=== PATIENT | female | born 1970 | race Caucasian/White ===

== ENCOUNTER 2020-10-19 19:27 | Inpatient (IN) | payer OTHER ==
[~2020-10-19] VITALS: Ht 154.9 cm; Wt 110.9 kg
[2020-10-19] MEDS ORDERED: KETOROLAC TROMETH 30 MG/ML 1ML VIAL IV ONE (19:45)
[2020-10-19] MEDS ORDERED: SODIUM CHLORIDE 0.9% 1,000 ML IVB ONE (19:45)
[2020-10-19] MEDS ORDERED: VANCOMYCIN 1GM/250ML 250 ML IV ONE (19:45)
[2020-10-19] MEDS ORDERED: ONDANSETRON HCL 4 MG/2 ML VIAL IV ONE (20:15)
[2020-10-19] MEDS ORDERED: ONDANSETRON HCL 4 MG/2 ML VIAL ONE (20:17)
[2020-10-19 20:22] LABS: Basophils # (auto) 0 10 ^3/uL (0-0.2); Basophils % (auto) 0.1 % (0.0-2.0); Eosinophils # (auto) 0 10 ^3/uL (0-0.8); Eosinophils % (auto) 0.3 % (0.0-7.0); Hematocrit 41.4 % (36.0-46.0); Lymphocytes # (auto) 0.3 10 ^3/uL (0.4-5.4); Lymphocytes % (auto) 3.7 % (10.0-50.0); Mean Corpuscular Hemoglobin 29.5 pg (28.0-32.0); Mean Corpuscular Hgb Conc. 33.7 g/dL (32.0-36.0); Mean Corpuscular Volume 87.6 fL (80.0-100.0); Monocytes # (auto) 0.2 10 ^3/uL (0-1.3); Monocytes % (auto) 3.4 % (0.0-12.0); Neutrophils # (auto) 6.7 10 ^3/uL (1.6-8.6); Neutrophils % (auto) 92.5 % (37.0-80.0); Nucleated Red Blood Cells % 0.2 %; Red Blood Cells 4.73 10^6/uL (4.0-5.20); Red Cell Distribution Width 14.4 % (11.8-14.3); White Blood Cell 7.3 10^3/uL (4.4-10.8)
[2020-10-19 20:45] LABS: INR 1.05 (0.9-1.15); Partial Thromboplastin Time 33.6 sec (23.6-33.0)
[2020-10-19] MEDS ORDERED: SODIUM CHLORIDE 0.9% 1,000 ML IV ONE ×2 (20:45→22:15)
[2020-10-19 20:56] LABS: Albumin 2.3 g/dL (3.4-5.0); BUN/Creatinine Ratio 13.5; Calcium 7.6 mg/dL (8.5-10.1); Potassium 3.5 mmol/L (3.5-5.1)
[2020-10-19 20:59] LABS: Lactic Acid w/Reflex 3.4 mmol/L (0.4-2.0)
[2020-10-19 21:05] LABS: Bilirubin, Total 0.8 mg/dL (0.2-1.0); CRP High Sensitivity 16.1 mg/dL (< 0.3); Total Protein 5.7 g/dL (6.4-8.2)
[2020-10-19] MEDS ORDERED: PIPERACILLIN-TAZO 4.5GM 100 ML IV ONE (21:15)
[2020-10-19] MEDS ORDERED: DexAMETHasone SOD PHOS 10MG/1ML VIAL INJ IV ONE (22:15)
[2020-10-19] MEDS ORDERED: ALBUMIN 5% 250 ML IV ONE (23:15)
[2020-10-19] MEDS ORDERED: ACETAMINOPHEN 325 MG TAB PO PRN (23:15)
[2020-10-19] MEDS ORDERED: ONDANSETRON HCL 4 MG/2 ML VIAL IV PRN (23:15)
[2020-10-19] MEDS ORDERED: NITROGLYCERIN 0.4 MG SL TAB SL PRN (23:15)
[2020-10-19] MEDS ORDERED: MORPHINE SULFATE INJECTION 2 MG/ML SYRG IV PRN (23:15)
[2020-10-20] MEDS: SODIUM CHLORIDE 0.9% 1,000 ML IV SCH ×4 (01:16→23:00)
[2020-10-20] MEDS: CLINDAMYCIN 600MG IV 50 ML IV SCH ×3 (05:49→20:43)
[2020-10-20 06:51] LABS: Basophils # (auto) 0 10 ^3/uL (0-0.2); Basophils % (auto) 0.1 % (0.0-2.0); Eosinophils # (auto) 0 10 ^3/uL (0-0.8); Eosinophils % (auto) 0.1 % (0.0-7.0); Hematocrit 33.9 % (36.0-46.0); Hemoglobin 11.8 g/dL (12.2-16.2); Lymphocytes # (auto) 0.4 10 ^3/uL (0.4-5.4); Lymphocytes % (auto) 8.9 % (10.0-50.0); Mean Corpuscular Hemoglobin 30.8 pg (28.0-32.0); Mean Corpuscular Hgb Conc. 34.7 g/dL (32.0-36.0); Mean Corpuscular Volume 88.9 fL (80.0-100.0); Monocytes # (auto) 0.2 10 ^3/uL (0-1.3); Monocytes % (auto) 3.7 % (0.0-12.0); Neutrophils # (auto) 4.1 10 ^3/uL (1.6-8.6); Neutrophils % (auto) 87.2 % (37.0-80.0); Red Blood Cells 3.81 10^6/uL (4.0-5.20); Red Cell Distribution Width 14.3 % (11.8-14.3); White Blood Cell 4.7 10^3/uL (4.4-10.8)
[2020-10-20 07:34] LABS: Albumin 2.1 g/dL (3.4-5.0); BUN/Creatinine Ratio 15.9; Calcium 6.8 mg/dL (8.5-10.1); Potassium 3.6 mmol/L (3.5-5.1)
[2020-10-20 07:36] LABS: Bilirubin, Total 0.6 mg/dL (0.2-1.0); Total Protein 5.1 g/dL (6.4-8.2)
[2020-10-20] MEDS: ZINC SULFATE 220mg CAP or TAB PO SCH (09:32)
[2020-10-20] MEDS: cefTRIAXone 1GM/50ML D5W 50 ML IV SCH (09:32)
[2020-10-20] MEDS: PANTOPRAZOLE 40 MG TAB PO SCH (09:33)
[2020-10-20] MEDS: ASCORBIC ACID 500 MG TAB PO SCH ×2 (09:33→20:43)
[2020-10-20] MEDS: SODIUM BICARBONATE 650 MG TAB PO SCH ×2 (15:04→20:43)
[2020-10-20 17:35] LABS: Urine Bacteria NONE SEEN /hpf (None Seen); Urine Blood 1+ /uL (Negative); Urine Specific Gravity 1.014 (1.001-1.035); Urine WBC 5 /hpf (0 - 5)
[2020-10-20 17:49] LABS: Creatinine, Urine 94 mg/dL (30.0-125.0); Protein, Urine 52.3 mg/dL (0.0-11.9); Sodium Urine 27 mmol/L (40-220)
[2020-10-20 22:00] VITALS: BP 106/54
[2020-10-20 22:23] VITALS: BP 106/54
[2020-10-21 05:00] VITALS: BP 115/52
[2020-10-21] MEDS: SODIUM BICARBONATE 650 MG TAB PO SCH ×3 (05:25→21:25)
[2020-10-21] MEDS: CLINDAMYCIN 600MG IV 50 ML IV SCH ×3 (05:25→21:25)
[2020-10-21 05:54] LABS: Basophils # (auto) 0 10 ^3/uL (0-0.2); Basophils % (auto) 0.4 % (0.0-2.0); Eosinophils # (auto) 0 10 ^3/uL (0-0.8); Eosinophils % (auto) 0.1 % (0.0-7.0); Lymphocytes # (auto) 0.6 10 ^3/uL (0.4-5.4); Neutrophils # (auto) 4.1 10 ^3/uL (1.6-8.6); Red Cell Distribution Width 14.3 % (11.8-14.3); White Blood Cell 5.1 10^3/uL (4.4-10.8)
[2020-10-21 05:56] LABS: Hematocrit 31.7 % (36.0-46.0); Hemoglobin 11.1 g/dL (12.2-16.2); Lymphocytes % (auto) 12.4 % (10.0-50.0); Mean Corpuscular Hemoglobin 30.4 pg (28.0-32.0); Mean Corpuscular Hgb Conc. 35.1 g/dL (32.0-36.0); Mean Corpuscular Volume 86.8 fL (80.0-100.0); Monocytes # (auto) 0.3 10 ^3/uL (0-1.3); Monocytes % (auto) 6.8 % (0.0-12.0); Neutrophils % (auto) 80.3 % (37.0-80.0); Nucleated Red Blood Cells % 0.1 %; Red Blood Cells 3.65 10^6/uL (4.0-5.20)
[2020-10-21 06:15] LABS: Potassium 3.2 mmol/L (3.5-5.1)
[2020-10-21 06:25] LABS: BUN/Creatinine Ratio 24.5
[2020-10-21 09:00] VITALS: BP 104/60
[2020-10-21] MEDS: cefTRIAXone 1GM/50ML D5W 50 ML IV SCH (09:16)
[2020-10-21] MEDS: ZINC SULFATE 220mg CAP or TAB PO SCH (09:16)
[2020-10-21] MEDS: PANTOPRAZOLE 40 MG TAB PO SCH (09:17)
[2020-10-21] MEDS: ASCORBIC ACID 500 MG TAB PO SCH ×2 (09:17→21:25)
[2020-10-21] MEDS ORDERED: ENOXAPARIN SOD 30 MG/0.3 ML SYRINGE SC SCH (10:00)
[2020-10-21] MEDS ORDERED: POTASSIUM CHL 20 Meq TABLET PO ONE (10:00)
[2020-10-21] MEDS ORDERED: SODIUM CHLORIDE 0.9% 1,000 ML IV SCH (11:15)
[2020-10-21] MEDS ORDERED: LACTATED RINGER'S 1,000 ML IV ONE (11:15)
[2020-10-21 13:00] VITALS: BP 103/50
[2020-10-21 17:10] VITALS: BP_SYST 126; BP_SYST 69; BP_DIAS 52; BP_DIAS 69
[2020-10-21 22:00] VITALS: BP 110/57
[2020-10-22 05:00] VITALS: BP 109/51
[2020-10-22] MEDS: SODIUM BICARBONATE 650 MG TAB PO SCH ×3 (05:27→21:37)
[2020-10-22] MEDS: CLINDAMYCIN 600MG IV 50 ML IV SCH ×3 (05:28→21:36)
[2020-10-22 06:25] LABS: Basophils # (auto) 0 10 ^3/uL (0-0.2); Basophils % (auto) 0.3 % (0.0-2.0); Eosinophils # (auto) 0 10 ^3/uL (0-0.8); Eosinophils % (auto) 0.4 % (0.0-7.0); Hemoglobin 10.4 g/dL (12.2-16.2); Lymphocytes # (auto) 0.5 10 ^3/uL (0.4-5.4); Monocytes # (auto) 0.2 10 ^3/uL (0-1.3); Neutrophils # (auto) 1.8 10 ^3/uL (1.6-8.6); Nucleated Red Blood Cells % 0.1 %; Red Cell Distribution Width 14.2 % (11.8-14.3); White Blood Cell 2.5 10^3/uL (4.4-10.8)
[2020-10-22 06:27] LABS: Hematocrit 29.9 % (36.0-46.0); Lymphocytes % (auto) 20.4 % (10.0-50.0); Mean Corpuscular Hemoglobin 30.4 pg (28.0-32.0); Mean Corpuscular Hgb Conc. 34.8 g/dL (32.0-36.0); Mean Corpuscular Volume 87.4 fL (80.0-100.0); Monocytes % (auto) 7.9 % (0.0-12.0); Red Blood Cells 3.42 10^6/uL (4.0-5.20)
[2020-10-22 06:55] LABS: Potassium 3.7 mmol/L (3.5-5.1)
[2020-10-22 07:04] LABS: BUN/Creatinine Ratio 19.8; Calcium 7.2 mg/dL (8.5-10.1)
[2020-10-22] MEDS: cefTRIAXone 1GM/50ML D5W 50 ML IV SCH (08:51)
[2020-10-22] MEDS: PANTOPRAZOLE 40 MG TAB PO SCH (08:51)
[2020-10-22] MEDS: ZINC SULFATE 220mg CAP or TAB PO SCH (08:51)
[2020-10-22] MEDS: ASCORBIC ACID 500 MG TAB PO SCH ×2 (08:51→21:37)
[2020-10-22 08:58] VITALS: BP 119/63
[2020-10-22] MEDS ORDERED: ERGOCALCIFEROL 50,000 UNIT(1.25MG) CAP PO SCH (10:30)
[2020-10-22] MEDS ORDERED: FUROSEMIDE 20 MG/2 ML VIAL IV ONE (12:00)
[2020-10-22 13:00] VITALS: BP 129/58
[2020-10-22] MEDS ORDERED: REMDESIVIR PER PHARMACY 0 ML IV SCH (13:00)
[2020-10-22 13:31] LABS: Albumin 1.9 g/dL (3.4-5.0)
[2020-10-22 13:35] LABS: Bilirubin, Direct 0.3 mg/dL (0-0.2); Bilirubin, Total 0.6 mg/dL (0.2-1.0); Total Protein 4.8 g/dL (6.4-8.2)
[2020-10-22] MEDS ORDERED: REMDESIVIR 200 MG in NS 210ml LOADING DOSE ADULT IV ONE (15:00)
[2020-10-22 17:00] VITALS: BP 117/64
[2020-10-22 22:00] VITALS: BP 127/62
[2020-10-23 05:00] VITALS: BP 105/50
[2020-10-23 05:53] LABS: Magnesium 1.9 mg/dL (1.6-2.6)
[2020-10-23 06:05] LABS: Basophils # (auto) 0 10 ^3/uL (0-0.2); Basophils % (auto) 0.4 % (0.0-2.0); Eosinophils # (auto) 0 10 ^3/uL (0-0.8); Eosinophils % (auto) 0.9 % (0.0-7.0); Hemoglobin 10.3 g/dL (12.2-16.2); Lymphocytes # (auto) 0.7 10 ^3/uL (0.4-5.4); Lymphocytes % (auto) 24.2 % (10.0-50.0); Mean Corpuscular Hemoglobin 30.8 pg (28.0-32.0); Mean Corpuscular Hgb Conc. 35.4 g/dL (32.0-36.0); Monocytes # (auto) 0.2 10 ^3/uL (0-1.3); Neutrophils # (auto) 1.9 10 ^3/uL (1.6-8.6); Neutrophils % (auto) 67.5 % (37.0-80.0); Nucleated Red Blood Cells % 0.2 %; Red Blood Cells 3.33 10^6/uL (4.0-5.20); Red Cell Distribution Width 14.2 % (11.8-14.3); White Blood Cell 2.8 10^3/uL (4.4-10.8)
[2020-10-23 06:06] LABS: Albumin 1.8 g/dL (3.4-5.0); BUN/Creatinine Ratio 17.2; Bilirubin, Total 0.5 mg/dL (0.2-1.0); CRP High Sensitivity 18.1 mg/dL (< 0.3); Calcium 7.5 mg/dL (8.5-10.1); Phosphorus 2.8 mg/dL (2.5-4.90); Total Protein 4.9 g/dL (6.4-8.2)
[2020-10-23 06:25] LABS: Potassium 2.8 mmol/L (3.5-5.1)
[2020-10-23] MEDS: SODIUM BICARBONATE 650 MG TAB PO SCH ×2 (06:50→13:31)
[2020-10-23] MEDS: CLINDAMYCIN 600MG IV 50 ML IV SCH ×3 (06:50→21:24)
[2020-10-23] MEDS ORDERED: POTASSIUM CHL 20 Meq TABLET PO ONE ×2 (07:00→18:00)
[2020-10-23 09:00] VITALS: BP 104/63
[2020-10-23] MEDS: PANTOPRAZOLE 40 MG TAB PO SCH (09:22)
[2020-10-23] MEDS: ASCORBIC ACID 500 MG TAB PO SCH ×2 (09:22→21:24)
[2020-10-23] MEDS: ZINC SULFATE 220mg CAP or TAB PO SCH (09:22)
[2020-10-23] MEDS: cefTRIAXone 1GM/50ML D5W 50 ML IV SCH (09:22)
[2020-10-23] MEDS ORDERED: FUROSEMIDE 20 MG/2 ML VIAL IV SCH (10:00)
[2020-10-23] MEDS ORDERED: MAGNESIUM OXIDE 400 MG TAB PO ONE (12:15)
[2020-10-23 13:00] VITALS: BP 102/56
[2020-10-23] MEDS: REMDESIVIR 100mg 100 MG in SODIUM CHL 0.9% 230 ML IV SCH (15:31)
[2020-10-23 17:00] VITALS: BP 105/71
[2020-10-23] MEDS: POTASSIUM EFFERVESENT TAB 25 MEQ PO SCH (18:23)
[2020-10-23] MEDS: FUROSEMIDE 20 MG/2 ML VIAL IV SCH (18:24)
[2020-10-23 22:00] VITALS: BP 115/62
[2020-10-24 05:00] VITALS: BP 115/67
[2020-10-24] MEDS: CLINDAMYCIN 600MG IV 50 ML IV SCH ×3 (05:24→21:16)
[2020-10-24] MEDS: FUROSEMIDE 20 MG/2 ML VIAL IV SCH ×2 (05:25→18:00)
[2020-10-24 07:29] LABS: Albumin 2.2 g/dL (3.4-5.0); BUN/Creatinine Ratio 16.9; Bilirubin, Total 0.4 mg/dL (0.2-1.0); Calcium 8.2 mg/dL (8.5-10.1)
[2020-10-24 07:44] VITALS: BP 111/56
[2020-10-24 09:00] VITALS: BP 111/56
[2020-10-24] MEDS: cefTRIAXone 1GM/50ML D5W 50 ML IV SCH (09:01)
[2020-10-24] MEDS: PANTOPRAZOLE 40 MG TAB PO SCH (09:01)
[2020-10-24] MEDS: POTASSIUM EFFERVESENT TAB 25 MEQ PO SCH (09:02)
[2020-10-24] MEDS: ASCORBIC ACID 500 MG TAB PO SCH ×2 (09:02→21:16)
[2020-10-24] MEDS: ZINC SULFATE 220mg CAP or TAB PO SCH (09:02)
[2020-10-24 13:00] VITALS: BP 117/70
[2020-10-24] MEDS ORDERED: POTASSIUM EFFERVESENT TAB 25 MEQ PO ONE (13:15)
[2020-10-24] MEDS: REMDESIVIR 100mg 100 MG in SODIUM CHL 0.9% 230 ML IV SCH (14:59)
[2020-10-24 16:45] VITALS: BP 114/62
[2020-10-24 22:00] VITALS: BP 111/68
[2020-10-25 05:00] VITALS: BP 117/58
[2020-10-25] MEDS: FUROSEMIDE 20 MG/2 ML VIAL IV SCH ×2 (06:28→17:42)
[2020-10-25] MEDS: CLINDAMYCIN 600MG IV 50 ML IV SCH ×3 (06:28→21:20)
[2020-10-25 07:16] LABS: Potassium 3.1 mmol/L (3.5-5.1)
[2020-10-25 07:30] LABS: BUN/Creatinine Ratio 17.3; Bilirubin, Total 0.4 mg/dL (0.2-1.0); Calcium 8.1 mg/dL (8.5-10.1); Total Protein 5.5 g/dL (6.4-8.2)
[2020-10-25 08:57] VITALS: BP 106/58
[2020-10-25] MEDS: POTASSIUM EFFERVESENT TAB 25 MEQ PO SCH (09:39)
[2020-10-25] MEDS: PANTOPRAZOLE 40 MG TAB PO SCH (09:40)
[2020-10-25] MEDS: ASCORBIC ACID 500 MG TAB PO SCH ×2 (09:40→21:21)
[2020-10-25] MEDS: cefTRIAXone 1GM/50ML D5W 50 ML IV SCH (09:40)
[2020-10-25] MEDS: ZINC SULFATE 220mg CAP or TAB PO SCH (09:40)
[2020-10-25 13:00] VITALS: BP 95/59
[2020-10-25] MEDS: REMDESIVIR 100mg 100 MG in SODIUM CHL 0.9% 230 ML IV SCH (15:30)
[2020-10-25] MEDS: POTASSIUM CHL 20 Meq TABLET PO ONE ×2 (16:02→16:03)
[2020-10-25 17:00] VITALS: BP 99/68
[2020-10-25 21:41] VITALS: BP 105/74
[2020-10-26 04:53] VITALS: BP 112/67
[2020-10-26] MEDS: CLINDAMYCIN 600MG IV 50 ML IV SCH ×3 (05:24→21:12)
[2020-10-26] MEDS: FUROSEMIDE 20 MG/2 ML VIAL IV SCH (05:24)
[2020-10-26 05:53] LABS: Basophils # (auto) 0 10 ^3/uL (0-0.2); Basophils % (auto) 0.3 % (0.0-2.0); Eosinophils # (auto) 0.1 10 ^3/uL (0-0.8); Eosinophils % (auto) 2.5 % (0.0-7.0); Hematocrit 34.6 % (36.0-46.0); Hemoglobin 11.8 g/dL (12.2-16.2); Lymphocytes % (auto) 18.6 % (10.0-50.0); Mean Corpuscular Hemoglobin 29.7 pg (28.0-32.0); Mean Corpuscular Volume 87.5 fL (80.0-100.0); Monocytes # (auto) 0.4 10 ^3/uL (0-1.3); Neutrophils # (auto) 3.9 10 ^3/uL (1.6-8.6); Neutrophils % (auto) 71.6 % (37.0-80.0); Nucleated Red Blood Cells % 0.1 %; Potassium 3.6 mmol/L (3.5-5.1); Red Blood Cells 3.95 10^6/uL (4.0-5.20); Red Cell Distribution Width 14.6 % (11.8-14.3); White Blood Cell 5.4 10^3/uL (4.4-10.8)
[2020-10-26 05:59] LABS: BUN/Creatinine Ratio 14.1; Magnesium 1.9 mg/dL (1.6-2.6)
[2020-10-26 06:08] LABS: CRP High Sensitivity 5.27 mg/dL (< 0.3); Total Protein 5.5 g/dL (6.4-8.2)
[2020-10-26 06:29] LABS: Albumin 2.1 g/dL (3.4-5.0); Bilirubin, Total 0.3 mg/dL (0.2-1.0)
[2020-10-26 07:50] VITALS: BP 91/61
[2020-10-26] MEDS: ASCORBIC ACID 500 MG TAB PO SCH ×2 (08:50→21:12)
[2020-10-26] MEDS: POTASSIUM EFFERVESENT TAB 25 MEQ PO SCH (08:50)
[2020-10-26] MEDS: cefTRIAXone 1GM/50ML D5W 50 ML IV SCH (08:50)
[2020-10-26] MEDS: ZINC SULFATE 220mg CAP or TAB PO SCH (08:50)
[2020-10-26] MEDS: PANTOPRAZOLE 40 MG TAB PO SCH (08:50)
[2020-10-26 09:00] VITALS: BP 91/61
[2020-10-26 13:00] VITALS: BP 101/60
[2020-10-26] MEDS: REMDESIVIR 100mg 100 MG in SODIUM CHL 0.9% 230 ML IV SCH (15:08)
[2020-10-26 17:00] VITALS: BP 123/63
[2020-10-26] MEDS: FUROSEMIDE 40 MG/4 ML VIAL IV SCH (18:34)
[2020-10-26 22:00] VITALS: BP 111/73
[2020-10-27 05:00] VITALS: BP 123/71
[2020-10-27] MEDS: FUROSEMIDE 40 MG/4 ML VIAL IV SCH (05:17)
[2020-10-27] MEDS: CLINDAMYCIN 600MG IV 50 ML IV SCH ×2 (05:17→14:42)
[2020-10-27] MEDS: PANTOPRAZOLE 40 MG TAB PO SCH (08:41)
[2020-10-27] MEDS: POTASSIUM EFFERVESENT TAB 25 MEQ PO SCH (08:41)
[2020-10-27] MEDS: ZINC SULFATE 220mg CAP or TAB PO SCH (08:41)
[2020-10-27] MEDS: cefTRIAXone 1GM/50ML D5W 50 ML IV SCH (08:41)
[2020-10-27] MEDS: ASCORBIC ACID 500 MG TAB PO SCH (08:46)
[2020-10-27 09:00] VITALS: BP 116/74
[2020-10-27 13:00] VITALS: BP 110/68
[2020-10-27 16:59] VITALS: BP 123/71
[2020-10-27 17:00] VITALS: BP 130/100
== END 2020-10-27 18:50 | disposition home or self-care (01) | DRG 871 ==
LOC: EDBD 19:27 → ER 19:29 → EDSEX 19:29 → TELE 23:02 → TELE-EAST 10-20 20:30
PROVIDERS: ADMIT Nurse Practitioner; ATTEND Internal Medicine
PROC: XW033E5 Introduction of Remdesivir Anti-infective into Peripheral Vein, Percutaneous Approach, New Technology Group 5 (ICD-10-PCS; principal; 2020-10-22)
DX: A41.9 Sepsis, unspecified organism (principal); E43 Unspecified severe protein-calorie malnutrition; N17.0 Acute kidney failure with tubular necrosis; U07.1 COVID-19; J96.01 Acute respiratory failure with hypoxia; L03.111 Cellulitis of right axilla; Z68.42 Body mass index [BMI] 45.0-49.9, adult; D69.6 Thrombocytopenia, unspecified; E66.01 Morbid (severe) obesity due to excess calories; E87.8 Other disorders of electrolyte and fluid balance, not elsewhere classified; E87.6 Hypokalemia; Z86.14 Personal history of Methicillin resistant Staphylococcus aureus infection; Z88.2 Allergy status to sulfonamides
CPT/HCPCS: 36415; 36600; 71045; 76642; 76775; 80048; 80053; 80076; 81001; 81025; 82306; 82570; 82728; 82805; 83036; 83605; 83615; 83735; 83880; 83935; 84100; 84156; 84300; 84439; 84443; 85025; 85379; 85610; 85730; 86141; 87040; 87426; 93005; 96365; 96366; 96367; 96368; 96375; 99291; G0378; J0696; J1100; J1885; J2405; J2543; J3490